=== PATIENT | male | born 1955 | race Caucasian/White ===

== ENCOUNTER 2022-07-24 10:38 | Emergency (ER) | payer MEDICARE ==
[~2022-07-24] VITALS: Ht 172.7 cm; Wt 82.0 kg
[2022-07-24] MEDS ORDERED: ULTRAM50 M1 PO (12:28)
[2022-07-24 12:29] VITALS: BP 142/78
== END 2022-07-24 13:00 | disposition home or self-care (01) ==
LOC: ED 10:38 → WW 10:38 → ED 11:10
PROC: 2W3CX1Z Immobilization of Right Lower Arm using Splint (ICD-10-PCS; principal; 2022-07-24)
DX: S52.571A Other intraarticular fracture of lower end of right radius, initial encounter for closed fracture (principal); S00.81XA Abrasion of other part of head, initial encounter; F17.210 Nicotine dependence, cigarettes, uncomplicated; X37.0XXA Hurricane, initial encounter; W01.0XXA Fall on same level from slipping, tripping and stumbling without subsequent striking against object, initial encounter; Y92.009 Unspecified place in unspecified non-institutional (private) residence as the place of occurrence of the external cause